=== PATIENT | male | born 1940 | race Caucasian/White ===

== ENCOUNTER 2019-04-23 17:25 | Inpatient (IN) | payer MEDICARE | END 2019-04-24 17:00 | disposition home or self-care (01) | LOC: EDH 17:25 → EDHIP 20:29 → 3DH 22:59 ==

== ENCOUNTER → 2023-01-02 | Outpatient (CLI) | payer MEDICARE ==
[~2023-01-02] MED LIST: AMLO-257 PO; BISA-189 PO; CEFD300C3 PO; COLC0.6C3 PO; GADOTERATE MEGLUMINE 10 MMOL/20 ML VIAL IV ONE; LACT10SO9 PO; RIVA10TA PO; SENN8.6T32 PO; SIMV5TAB58 PO
== END | disposition home or self-care (01) ==
LOC: RAH 14:34
PROVIDERS: ATTEND Family Medicine
DX: M47.26 Other spondylosis with radiculopathy, lumbar region (principal); M48.061 Spinal stenosis, lumbar region without neurogenic claudication
CPT/HCPCS: 72158; A9575

== ENCOUNTER 2023-06-02 14:00 | Observation (INO) | payer MEDICARE ==
[~2023-06-02] VITALS: Ht 174 cm; Wt 80.3 kg
[2023-06-02 12:32] VITALS: BP 153/84; PULSE 66; RESP 18
[2023-06-02 12:59] LABS: BASOPHILS # (AUTO) 0.08 K/uL (0.00-0.20); EOSINOPHILS # (AUTO) 0.08 K/uL (0.00-0.70); HEMATOCRIT 48.4 % (42-54); IMMATURE GRANULOCYTE ABSOLUTE 0.04 K/uL (0-1); LYMPHOCYTES # (AUTO) 1.3 K/uL (1.0-4.8); LYMPHOCYTES % (AUTO) 15.9 % (21.0-51.0); MEAN CORPUSCULAR HEMOGLOBIN 33.6 pg (27.0-33.0); MEAN CORPUSCULAR HGB CONC 33.5 g/dL (32.0-36.0); MEAN CORPUSCULAR VOLUME 100.4 fL (79-99); MONOCYTES # (AUTO) 0.9 K/uL (0.1-1.0); MONOCYTES % (AUTO) 10.6 % (3.0-13.0); NEUTROPHILS # (AUTO) 5.8 K/uL (1.8-7.7); PLATELET COUNT (AUTO) 220 K/uL (130-400); RED BLOOD CELL COUNT(AUTO) 4.82 MIL/uL (4.50-6.20); RED CELL DISTRIBUTION WIDTH 14.6 % (11.0-15.5); WHITE BLOOD COUNT (AUTO) 8.1 K/uL (4.8-10.8)
[2023-06-02 13:17] LABS: POTASSIUM 5.1 mmol/L (3.5-5.1)
[~2023-06-02 14:00] MED LIST changes: -BISA-189 PO; -CEFD300C3 PO; -COLC0.6C3 PO; +GABA-529 PO; -GADOTERATE MEGLUMINE 10 MMOL/20 ML VIAL IV ONE; -LACT10SO9 PO; -RIVA10TA PO; -SENN8.6T32 PO
[2023-06-02 14:21] LABS: ERYTHROCYTE SEDIMENTATION RATE 13 MM/HR (0-20)
[2023-06-04] MEDS ORDERED: LIDOCAINE 2%-EPI PF 30 ML+BUPIVACAINE/PF 0.25% 30ML /60ML SYR IJ SCH ×2 (10:30)
[2023-06-05] VITALS (26 sets, daily range): BP systolic 92–155; BP diastolic 57–95; PULSE 69–90; RESP 10–20; O2SAT 91–98
[2023-06-05] MEDS ORDERED: CEFAZOLIN SODIUM 2 GM VIAL ONE (06:14)
[2023-06-05] MEDS ORDERED: LACTATED RINGERS 1000ML 1,000 ML IV ONE (06:15)
[2023-06-05] MEDS ORDERED: PROPOFOL 10 MG/ML 20ML VIAL IV ONE (06:56)
[2023-06-05] MEDS ORDERED: SUCCINYLCHOLINE CHLORIDE 20 MG/ML 10 ML VIAL ONE (06:56)
[2023-06-05] MEDS ORDERED: GLYCOPYRROLATE 1 MG/5 ML SYRINGE ONE (06:56)
[2023-06-05] MEDS ORDERED: DEXAMETHASONE SOD PHOSPHATE 10MG/ML 1ML VIAL ONE ×2 (06:56→07:01)
[2023-06-05] MEDS ORDERED: NEOSTIGMINE 5MG/5ML SYR IV ONE (06:56)
[2023-06-05] MEDS ORDERED: MIDAZOLAM HCL 1 MG/ML 2ML VIAL ONE (06:56)
[2023-06-05] MEDS ORDERED: LIDOCAINE PF 100MG/5ML (2%) SYRINGE 5ML ONE (06:56)
[2023-06-05] MEDS ORDERED: CEFAZOLIN SODIUM 1 GM VIAL ONE (06:57)
[2023-06-05] MEDS ORDERED: FENTANYL CITRATE PF 50 MCG/1 ML 2ML VIAL ONE ×2 (06:57→09:35)
[2023-06-05] MEDS ORDERED: MORPHINE PF 100MG/10ML AMP IV ONE ×2 (06:57→08:24)
[2023-06-05] MEDS ORDERED: ONDANSETRON 4MG INJ ONE ×2 (06:57→07:00)
[2023-06-05] MEDS ORDERED: ROCURONIUM 10MG/1ML SYR 10 MG/ML ML ONE (06:57)
[2023-06-05] MEDS ORDERED: THROMBIN-JMI 20000 UNIT KIT TP ONE (06:58)
[2023-06-05] MEDS ORDERED: PHENYLEPHRINE HCL 10 MG/ML 1ML VIAL IV ONE ×2 (06:58→09:44)
[2023-06-05] MEDS ORDERED: CEFAZOLIN SODIUM 2 GM VIAL IVPB ONE (07:41)
[2023-06-05] MEDS ORDERED: THROMBIN 20000 UNITS/VIAL POWDER TP ONE (08:24)
[2023-06-05] MEDS ORDERED: CEFAZOLIN SODIUM 1 GM VIAL IRRIG ONE (08:24)
[2023-06-05] MEDS ORDERED: ARTIFICIAL TEARS 3.5 GM OINTMENT ONE (09:46)
[2023-06-05] MEDS ORDERED: 0.9%NACL 10ML VIAL IVP PRN (15:30)
[2023-06-05] MEDS ORDERED: MORPHINE 2 MG SYG IVP PRN (15:30)
[2023-06-05] MEDS ORDERED: PROMETHAZINE HCL 25 MG/ML 1ML AMPULE IM PRN (15:30)
[2023-06-05] MEDS ORDERED: HYDROCODONE/ACETAMINOPHEN 5/325 MG TAB PO PRN (15:30)
[2023-06-05] MEDS ORDERED: CEFAZOLIN SODIUM 2 GM VIAL IVPB SCH (16:30)
[2023-06-05] MEDS: DEXAMETHASONE SOD PHOSPHATE 4 MG/ML 1ML VIAL IVP SCH ×2 (17:09→22:44)
[2023-06-05] MEDS: LACTATED RINGERS 1000ML 1,000 ML IV SCH (17:19)
[2023-06-05] MEDS: GABAPENTIN 100 MG CAPSULE PO SCH (20:25)
[2023-06-05] MEDS ORDERED: SIMVASTATIN 10 MG TABLET PO SCH (21:00)
[2023-06-05] MEDS ORDERED: NON-FORMULARY MEDICATION 1 EACH (Simvastatin 5 MG) PO SCH (21:00)
[2023-06-05] MEDS ORDERED: AMLODIPINE 5 MG TAB PO SCH (21:00)
[2023-06-06] VITALS: BP 112/69; PULSE 80; RESP 18
[2023-06-06 04:00] VITALS: BP 129/74; PULSE 66; RESP 20
[2023-06-06] MEDS: DEXAMETHASONE SOD PHOSPHATE 4 MG/ML 1ML VIAL IVP SCH (04:01)
[2023-06-06] MEDS: LACTATED RINGERS 1000ML 1,000 ML IV SCH (04:50)
[2023-06-06 07:00] VITALS: O2SAT 91
[2023-06-06] MEDS: GABAPENTIN 100 MG CAPSULE PO SCH (07:49)
[2023-06-06 08:00] VITALS: BP 119/80; PULSE 112; RESP 18
[2023-06-06] MEDS ORDERED: TAMSULOSIN HCL 0.4 MG CAP.ER.24H PO ONE (08:00)
[2023-06-06 12:00] VITALS: BP 111/53; PULSE 78; RESP 18
== END 2023-06-06 14:00 | disposition home or self-care (01) ==
LOC: DAHIP 06-05 05:43 → 4CH 06-05 12:20 → EDSTATUS 06-05 14:00
PROVIDERS: ADMIT Neurological Surgery; ATTEND Neurological Surgery
DX: M48.061 Spinal stenosis, lumbar region without neurogenic claudication (principal); I10 Essential (primary) hypertension; E78.5 Hyperlipidemia, unspecified; J45.20 Mild intermittent asthma, uncomplicated; H91.90 Unspecified hearing loss, unspecified ear; Z97.4 Presence of external hearing-aid; Z79.899 Other long term (current) drug therapy
CPT/HCPCS: 80051; 85025; 85651; 36415; 71045; 63047; 63048 ×2; 96376 ×2; 96365; 96375; 72020; J1100 ×5; G0378 ×27; G0379; A4600 ×2; A4510; A6260; J3490 ×4; A4663; J7120 ×2; A4344; J3010 ×2; J0690 ×5; J2710; J0330; J2001; J2250; J2704; J2274 ×2; J2405 ×2; J2371 ×2; A4649; A4215; A4223; A4222; A4221

== ENCOUNTER 2025-04-04 15:59 | Emergency (ER) | payer MEDICARE ==
[~2025-04-04] VITALS: Ht 180.3 cm; Wt 80.7 kg
--- NOTE | 2025-04-04 16:47 | ERN ---
General Chief Complaint: Laceration/Avulsion Stated Complaint: RT 3RD FINGER LAC Time Seen by MD: 16:01 Source: patient History of Present Illness Initial Comments PATIENT IS A AN 84-YEAR-OLD MALE COMING IN TO BE EVALUATED FOR RIGHT HAND MIDDLE FINGER LACERATION. PER PATIENT HE WAS WORKING ON HIS BAND SAW AND CUT MIDDLE OF HIS FINGER. Allergies: Coded Allergies: No Known Drug Allergies (Verified Allergy, Severe, 11/17/14) Home Meds Reported Medications Gabapentin (Gabapentin) 100 Mg Capsule, 100 MG PO BID, CAP 06/02/23 Simvastatin (Simvastatin) 5 Mg Tablet, 5 MG PO HS, TAB 04/24/19 Amlodipine Besylate (Amlodipine Besylate) 5 Mg Tablet, 5 MG PO HS, TAB 04/24/19 Past Medical History Past Medical History: High Cholesterol, Hypertension Past Surgical History: Appendectomy Surgical History Other: KNEE, HERNIA, BLADDER STONES ROS Dictation CONSTITUTIONAL: NO CHILLS, NO FEVER, NO WEAKNESS, NO DIAPHORESIS, NO MALAISE. HEAD/FACE: NO SIGNS OF TRAUMA. EENT: NO EYE PAIN, NO BLURRED VISION, NO TEARING, NO DOUBLE VISION, NO EAR PAIN, NO EAR DISCHARGE, NO NOSE PAIN, NO NASAL CONGESTION, NO THROAT PAIN, NO THROAT SWELLING, NO MOUTH PAIN. RESPIRATORY: NO COUGH, NO ORTHOPNEA, NO SOB, NO STRIDOR, NO WHEEZING. CARDIOVASCULAR: NO CHEST PAIN, NO EDEMA, NO PALPITATIONS, NO SYNCOPE. GASTROINTESTINAL/ABDOMINAL: NO ABDOMINAL PAIN, NO CONSTIPATION, NO DIARRHEA, NO NAUSEA, NO VOMITING. GENITOURINARY: NO ABNORMAL DISCHARGE, NO DYSURIA, NO FREQUENT URINATION, NO HEMATURIA. NO COMPLAINTS OF PAIN IN THE GENITALS. MUSCULOSKELETAL: NO BACK PAIN, NO GOUT, NO JOINT PAIN, NO JOINT SWELLING, NO MUSCLE PAIN, NO MUSCLE STIFFNESS, NO NECK PAIN. INTEGUMENTARY: NO CHANGE IN COLOR, NO CHANGE IN HAIR/NAILS, NO DRYNESS, NO LESION, NO LUMPS, NO RASH. NEUROLOGICAL/PSYCH: NO ANXIETY, NOT DEPRESSED, NO EMOTIONAL PROBLEM, NO HEADACHE, NO NUMBNESS, NO PRE-EXISTING DEFICIT, NO HISTORY OF SEIZURES, NO TREMORS, NO WEAKNESS. HEMATOLOGIC/LYMPHATIC: NOT ANEMIC, NO HISTORY OF BLOOD CLOTS, NO APPARENT BLEEDING, NO BRUISING, GLANDS NOT SWOLLEN. ALL SYSTEMS NEGATIVE, EXCEPT NOTED. Physical Exam Physical Exam Dictation VITAL SIGNS: REVIEWED. GENERAL APPEARANCE: ALERT, ORIENTED X3, NO ACUTE DISTRESS, OBESE. HEAD AND FACE: NON-TRAUMATIC. EYES: PERRL, PINK CONJUNCTIVAS, EYELID NO TRAUMA, ANTERIOR CHAMBER CLEAR. EARS: PINNAS INTACT AND NO SIGNS OF TRAUMA OR ERYTHEMA. EAR CANALS CLEAR AND NO DISCHARGE. TMS NO ERYTHEMA. NOSE: NO DISCHARGE, NO BLEEDING. OROPHARYNX: MOUTH NORMAL, TEETH NO CARIES, TONGUE PINK. PHARYNX CLEAR, NO ERYTHEMA. TONSILS NO EXUDATES, NO ABSCESSES NOTED. MUCOUS MEMBRANE MOIST. NECK: SUPPLE, NON-TENDER, NO THYROMEGALY, NO MASSES, NO JVD, NO BRUITS. BREAST: DEFERRED. CHEST: NO TENDERNESS, NO CREPITUS, NO PARADOXICAL MOVEMENT, NO RETRACTIONS. LUNGS: CLEAR, WELL-VENTILATED, SYMMETRIC, NO RALES, NO WHEEZING, NO RHONCHI, NO STRIDOR, GOOD BREATH SOUNDS BILATERALLY. HEART: REGULAR RATE, REGULAR RHYTHM, NO MURMUR, NO GALLOPS. VASCULAR: NO PERIPHERAL EDEMA. ABDOMEN: SOFT, POSITIVE BOWEL SOUNDS, NONDISTENDED, NO GUARDING, NONTENDER, NO REBOUND, NO MASSES NO HEPATOMEGALY, NO SPLENOMEGALY, NO DODD'S SIGN, NO HERNIAS. RECTAL: DEFERRED. GENITAL: DEFERRED. NEUROLOGICAL: NORMAL SPEECH, GROSS MOTOR FUNCTION INTACT, GROSS SENSORY FUNCTION INTACT. MUSCULOSKELETAL: NECK NONTENDER, FULL RANGE OF MOTION, BACK NONTENDER, FULL RANGE OF MOTION. EXTREMITIES: NONTENDER, FULL RANGE OF MOTION. SKIN: COLOR PINK, DRY, NO TURGOR, NO RASH, NO LACERATIONS, NO ABRASIONS, NO CONTUSIONS. LYMPHATICS: DEFERRED. Results Laboratory and Microbiology Labs Reviewed?: Yes EKG/XRAY/US/CT/MRI X-RAY Comment X-RAY FINGER-NAD MDM MDM: DIFFERENTIAL DIAGNOSIS: RATIONALE: TESTS CONSIDERED AND ORDERED SECONDARY TO SHARED DECISION MAKING INCLUDE: PREVIOUS OUTSIDE RECORDS REVIEWED: OLD ER VISITS. RISK OF COMPLICATION AND/OR MORBIDITY OR MORTALITY OF PATIENT MANAGEMENT: NONE MEDICATIONS-PER MEDICATION RECONCILIATION NEED FOR HOSPITALIZATION: PATIENT DOES NOT MEET CRITERIA FOR HOSPITALIZATION. NEED FOR EMERGENCY MAJOR/MINOR SURGERY: NO THERE ARE NO SOCIAL CONCERNS WITH THIS PATIENT. PRESCRIPTION DRUG MANAGEMENT PRESCRIPTIONS WILL INCLUDE SYMPTOMATIC CARE PATIENT'S PRIOR EXTERNAL MEDICAL RECORDS FROM OTHER ER VISITS WERE REVIEWED BY ME INDICATED. PRIOR TESTING AND RESULTS FROM PREVIOUS VISITS WERE REVIEWED. PRIOR TESTS WERE TAKEN INTO ACCOUNT WITH MEDICAL DECISION MAKING AND RESOURCE UTILIZATION, INDEPENDENT HISTORIAN/HISTORIANS WERE USED TO OBTAIN COMPLETE MEDICAL HISTORY. I INDEPENDENTLY INTERPRETED THE TEST THAT WERE PERFORMED, RESULTS WERE REVIEWED BY ME AND CONSIDERED FINDINGS ON RADIOLOGY IF ORDERED. MEDICAL MANAGEMENT AND EXAMINATION INTERPRETATION DISCUSSIONS WERE HAD BY ME WITH OTHER QUALIFIED HEALTHCARE PROFESSIONALS INDICATED FOR THE PATIENT'S CARE. ED Course Orders Procedure Category Date Status Time Finger(S) 2+Vws Rt RAD 04/04/25 Taken 16:16 Ceftriaxone 1g Vial PHA 04/04/25 Complete (Rocephine 1g Inj) 16:30 Lidocaine Hcl 1% 20ml PHA 04/04/25 Complete Vial (Lidocaine Hc 16:16 Current Medications Medications (Trade) Dose Ordered Sig/Sangeeta Route PRN Reason Start Time Stop Time Status Last Admin Dose Admin Ceftriaxone Sodium (ROCEphine 1G INJ) 1 gm ONCE ONCE IVPB 04/04/25 16:30 04/04/25 16:31 DC Lidocaine HCl (Lidocaine HCl 1% 20ml Vial) 20 ml ONCE STAT INJ 04/04/25 16:16 04/04/25 16:26 DC Vital Signs Date Time Temp Pulse Resp B/P (MAP) Pulse Ox O2 Delivery O2 Flow Rate FiO2 04/04/25 18:10 98.4 84 16 127/62 95 Room Air* 0 21 04/04/25 16:01 98.4 91 16 130/68 95 Room Air 0 Procedure Dictation RIGHT HAND MIDDLE DIGIT LACERATION Laceration/Wound Repair Laceration/Wound Repair : Wound Location: upper extremity Wound Length (cm): 3 Wound's Depth, Shape: superficial Wound Explored: clean Irrigated w/ Saline (ccs): 100 Betadine Prep?: Yes Anesthesia: 1% Lidocaine Volume Anesthetic (ccs): 5 Wound Debrided: minimal Wound Repaired With: sutures Suture Size/Type: 4:0 Number of Sutures: 6 DX & DISP Disposition: Discharge Departure Impression: Primary Impression: Finger laceration Condition: Stable Scripts Cephalexin Monohydrate (Keflex) 500 Mg Cap 1 CAP PO BID for 7 Days, #14 CAP 0 Refills Prov: ANKITA BASURTO MD 04/04/25 Additional Instructions: FOLLOW-UP WITH PRIMARY CARE PROVIDER IN 1 TO 2 DAYS. TAKE MEDICATIONS DIRECTED HERE IN THE EMERGENCY ROOM. OKAY TO CONTINUE HOME MEDICATIONS UNLESS OTHERWISE DISCUSSED DURING YOUR VISIT IN THE EMERGENCY ROOM TODAY. RETURN TO YOUR NEAREST EMERGENCY ROOM IF SYMPTOMS WORSEN OR IF THERE IS NO IMPROVEMENT. CALL 911 IF YOU NEED IMMEDIATE ASSISTANCE. TAKE TYLENOL [id number] NEEDED AND IF NO CONTRAINDICATIONS ARE PRESENT. INCREASE ORAL HYDRATION. A WOUND CULTURE OR URINE CULTURE WAS ORDERED HERE IN THE EMERGENCY ROOM DEPARTMENT PLEASE FOLLOW-UP WITH PRIMARY CARE PROVIDER AND ADVISE THEM TO GET REPORTS FROM OUR FACILITY. IF YOU HAD ANY MYRIAM WRAP/SPLINTS THAT WERE APPLIED HERE, PLEASE DO NOT REMOVE THEM UNTIL YOU SEE YOUR PRIMARY CARE OR SPECIALTY. REFERRALS: Referrals: MICHAEL JENNINGS MD (PCP) Time of Disposition: 18:45 ANKITA BASURTO MD Apr 04, 2025 16:47
--- NOTE | 2025-04-04 18:13 | NUR ---
LAC CLEANED, SUTURED X 6, AND DRESSED, PT TOLERATED WELL
[2025-04-04] MEDS ORDERED: CEPH500B PO (18:46)
--- NOTE | 2025-04-04 19:09 | HMCIMG ---
EXAM: Right finger radiograph 3 view HISTORY: Laceration COMPARISON: None TECHNIQUE: AP, lateral, oblique view of the finger FINDINGS: No acute fracture or dislocation. Degenerative changes. Soft tissue swelling. Vascular calcifications. IMPRESSION: No fracture or dislocation /[place]
[2025-04-04 19:12] VITALS: BP 120/68; PULSE 80; RESP 16; TEMP 98.4; O2SAT 95
[2025-04-04] MEDS: LIDOCAINE HCL 1% 20 ML VIAL INJ STA (19:12)
== END 2025-04-04 19:13 | disposition home or self-care (01) ==
LOC: EDH 15:59
DX: S61.212A Laceration without foreign body of right middle finger without damage to nail, initial encounter (principal); E78.00 Pure hypercholesterolemia, unspecified; I10 Essential (primary) hypertension; Z79.899 Other long term (current) drug therapy; Z90.49 Acquired absence of other specified parts of digestive tract; W31.2XXA Contact with powered woodworking and forming machines, initial encounter; Y93.89 Activity, other specified; Y92.89 Other specified places as the place of occurrence of the external cause; Y99.8 Other external cause status
CPT/HCPCS: 99284; 96365; 73140; 12002; J0696